=== PATIENT | male | born 1995 | race Caucasian/White ===

== ENCOUNTER 2016-09-14 19:48 | Emergency (ER) | payer SELFPAY ==
[~2016-09-14] VITALS: Ht 187.9 cm; Wt 83.0 kg
--- NOTE | ~2016-09-14 | EKG ---
[place], [place] ELECTROCARDIOGRAM REPORT NAME: CARLOS BOBO UNIT #: [id number] ROOM: DOCTOR: LASHAY PAYNE MD BIRTHDATE: [birth year] DOS: 09/14/2016 TIME: 2140. FINDINGS: Sinus rhythm at rate of 79. Probable right atrial enlargement. Possible right ventricular enlargement. Cannot rule out acute lateral ST elevation and lateral injury. Abnormal electrocardiogram. LASHAY PAYNE MD CM:EKGRPT:ELECTROCARDIOGRAM REPORT [id number] LASHAY PAYNE MD
--- NOTE | ~2016-09-14 | EKG ---
[place], [place] ELECTROCARDIOGRAM REPORT NAME: CARLOS BOBO UNIT #: [id number] ROOM: DOCTOR: LASHAY PAYNE MD BIRTHDATE: [birth year] DOS: 09/14/2016 TIME: 2001. FINDINGS: Sinus rhythm at rate of 99. Right atrial enlargement. Probable right ventricular hypertrophy. I cannot rule out acute lateral ischemia. Abnormal electrocardiogram. LASHAY PAYNE MD CM:EKGRPT:ELECTROCARDIOGRAM REPORT [id number] LASHAY PAYNE MD
[~2016-09-14 19:48] MED LIST: CIPROFLOXACIN750 MG PO; COLACE100 MG PO; K-DUR20 MEQ PO; METRONIDAZOLE500 M1 PO; VICODIN 5-3001 EACH PO
[2016-09-14 20:15] LABS: BASO # 0.1 10*3/uL (0.0-0.1); BASO % 0.5 % (0.0-1.0); EOS # 0.4 10*3/uL (0.0-0.4); EOS % 2.9 % (1.0-4.0); HEMATOCRIT 45.8 % (42.0-52.0); HEMOGLOBIN 15.3 g/dl (14.0-18.0); IG # 0.1 10*3/uL (0.0-0.1); LYMPH # 1.6 10*3/uL (1.3-4.4); LYMPH % 11.1 % (27.0-41.0); MEAN CELL VOLUME 92.3 fl (80.0-94.0); MEAN CORPUSCULAR HGB 30.8 pg (27.0-31.0); MEAN CORPUSCULAR HGB CONC 33.4 g/dl (33.0-37.0); MEAN PLATELET VOLUME 10.9 fl (9.6-12.3); MONO # 1.1 10*3/uL (0.1-1.0); MONO % 7.4 % (3.0-9.0); NEUT # 11.3 10*3/uL (2.3-7.9); NEUT % 77.3 % (47.0-73.0); PLATELET COUNT AUTOMATED 297 10*3/uL (130-400); RED BLOOD COUNT 4.96 10*6/uL (4.50-5.90); RED CELL DISTRI WIDTH 12.4 % (0-14.5); WHITE BLOOD COUNT 14.6 10*3/uL (4.8-10.8)
[2016-09-14 20:26] LABS: PROTHROMBIN TIME 10.7 SECONDS (9.0-12.4)
[2016-09-14 21:10] LABS: URINE AMPHETAMINES < 1000 (1000ng/ml); URINE BARBITURATES < 200 (200ng/ml); URINE COCAINE < 300 (300ng/ml)
[2016-09-14 21:21] LABS: ALBUMIN 3.6 gm/dl (3.1-4.5); ALKALINE PHOSPHATASE 57 U/L (45-117); BILIRUBIN, TOTAL 0.6 mg/dl (0.2-1.0); BUN 4 mg/dl (7-24); CARBON DIOXIDE 28 mmol/L (21-32); CHLORIDE 108 mmol/L (98-107); EST GLOM FILT AFRICAN AMERICAN > 60 ml/min; GLUCOSE 145 mg/dL (65-99); POTASSIUM 3.4 mmol/L (3.5-5.1); SGOT/AST 119 IU/L (3-35); SGPT/ALT 36 U/L (12-78); SODIUM 143 mmol/L (136-145); TOTAL PROTEIN 6.8 gm/dL (6.4-8.2)
== END 2016-09-14 21:21 | disposition short-term general hospital (02) ==
LOC: ED 19:48
PROVIDERS: Student in an Organized Health Care Education/Training Program
DX: R07.9 Chest pain, unspecified (principal); R79.89 Other specified abnormal findings of blood chemistry; F17.200 Nicotine dependence, unspecified, uncomplicated; Z90.49 Acquired absence of other specified parts of digestive tract

== ENCOUNTER 2018-11-25 22:25 | Emergency (ER) | payer OTHER ==
[~2018-11-25] VITALS: Wt 72.6 kg
[2018-11-25 22:54] LABS: BASO # 0.1 10*3/uL (0.0-0.1); BASO % 1.1 % (0.0-1.0); EOS # 0.6 10*3/uL (0.0-0.4); EOS % 9.3 % (1.0-4.0); HEMATOCRIT 43.5 % (42.0-52.0); HEMOGLOBIN 14.7 g/dl (14.0-18.0); LYMPH # 1.8 10*3/uL (1.3-4.4); LYMPH % 28.1 % (27.0-41.0); MEAN CELL VOLUME 92.9 fl (80.0-94.0); MEAN CORPUSCULAR HGB 31.4 pg (27.0-31.0); MEAN CORPUSCULAR HGB CONC 33.8 g/dl (33.0-37.0); MEAN PLATELET VOLUME 11.1 fl (9.6-12.3); MONO # 0.6 10*3/uL (0.1-1.0); MONO % 9.5 % (3.0-9.0); NEUT # 3.3 10*3/uL (2.3-7.9); NEUT % 51.7 % (47.0-73.0); PLATELET COUNT AUTOMATED 211 10*3/uL (130-400); RED BLOOD COUNT 4.68 10*6/uL (4.50-5.90); RED CELL DISTRI WIDTH 11.9 % (0-14.5); WHITE BLOOD COUNT 6.3 10*3/uL (4.8-10.8)
[2018-11-25 23:10] LABS: ALBUMIN 4.5 gm/dl (3.1-4.5); ALKALINE PHOSPHATASE 68 U/L (45-117); BUN 16 mg/dl (7-24); CHLORIDE 106 mmol/L (98-107); POTASSIUM 3.7 mmol/L (3.5-5.1); SGOT/AST 12 IU/L (3-35); SGPT/ALT 22 U/L (12-78); SODIUM 141 mmol/L (136-145); TOTAL PROTEIN 7.6 gm/dL (6.4-8.2)
== END 2018-11-26 02:04 | disposition home or self-care (01) ==
LOC: ED 22:25
PROVIDERS: Nurse Practitioner Family
DX: R51 Headache (principal); I10 Essential (primary) hypertension; F17.210 Nicotine dependence, cigarettes, uncomplicated

== ENCOUNTER 2019-06-22 06:06 | Emergency (ER) | payer SELFPAY ==
[~2019-06-22] VITALS: Ht 187.9 cm; Wt 77.1 kg
[2019-06-22 06:53] LABS: BASO # 0.1 10*3/uL (0.0-0.1); EOS # 0.4 10*3/uL (0.0-0.4); HEMOGLOBIN 13.7 g/dl (14.0-18.0); LYMPH # 2.4 10*3/uL (1.3-4.4); LYMPH % 39.4 % (27.0-41.0); MEAN CELL VOLUME 93.4 fl (80.0-94.0); MEAN CORPUSCULAR HGB 31.2 pg (27.0-31.0); MEAN CORPUSCULAR HGB CONC 33.4 g/dl (33.0-37.0); MONO # 0.8 10*3/uL (0.1-1.0); MONO % 12.9 % (3.0-9.0); NEUT # 2.4 10*3/uL (2.3-7.9); NEUT % 40.4 % (47.0-73.0); PLATELET COUNT AUTOMATED 239 10*3/uL (130-400); RED BLOOD COUNT 4.39 10*6/uL (4.50-5.90); RED CELL DISTRI WIDTH 12.2 % (0-14.5)
[2019-06-22] MEDS ORDERED: CLINDAMYCIN150 MG PO (07:12)
[2019-06-22] MEDS ORDERED: Motrin,Rufen800 MG PO (07:12)
[2019-06-22 07:14] LABS: BUN 15 mg/dl (7-24); CHLORIDE 106 mmol/L (98-107); POTASSIUM 3.8 mmol/L (3.5-5.1); SODIUM 139 mmol/L (136-145)
== END 2019-06-22 07:11 | disposition home or self-care (01) ==
LOC: ED 06:06
PROVIDERS: Emergency Medicine Emergency Medical Services
DX: K02.9 Dental caries, unspecified (principal); K04.01 Reversible pulpitis; I10 Essential (primary) hypertension; F17.210 Nicotine dependence, cigarettes, uncomplicated; Z90.49 Acquired absence of other specified parts of digestive tract

== ENCOUNTER → 2020-03-26 | Outpatient (CLI) | payer SELFPAY ==
[~2020-03-26] MED LIST changes: +CLINDAMYCIN150 MG PO; +Motrin,Rufen800 MG PO
== END | disposition home or self-care (01) ==
LOC: COVID19 13:36
PROVIDERS: ATTEND Internal Medicine
DX: Z20.828 Contact with and (suspected) exposure to other viral communicable diseases (principal)

== ENCOUNTER 2021-01-08 15:45 | Emergency (ER) | payer OTHER ==
[~2021-01-08] VITALS: Ht 187.9 cm; Wt 81.6 kg
== END 2021-01-08 19:24 | disposition home or self-care (01) ==
LOC: ED 15:45
DX: S92.351A Displaced fracture of fifth metatarsal bone, right foot, initial encounter for closed fracture (principal); F17.210 Nicotine dependence, cigarettes, uncomplicated; F12.10 Cannabis abuse, uncomplicated; Z90.49 Acquired absence of other specified parts of digestive tract; X50.1XXA Overexertion from prolonged static or awkward postures, initial encounter; Y93.61 Activity, american tackle football; Y92.89 Other specified places as the place of occurrence of the external cause; Y99.9 Unspecified external cause status

== ENCOUNTER 2022-03-31 09:39 | Emergency (ER) | payer BC ==
[~2022-03-31] VITALS: Ht 187.9 cm; Wt 72.6 kg
[2022-03-31] MEDS ORDERED: VIBRA-TAB100 MG PO (10:02)
== END 2022-03-31 10:07 | disposition home or self-care (01) ==
LOC: ED 09:39
DX: J40 Bronchitis, not specified as acute or chronic (principal); R04.2 Hemoptysis; Z90.49 Acquired absence of other specified parts of digestive tract; Z98.890 Other specified postprocedural states

== ENCOUNTER 2024-05-21 10:23 | Emergency (ER) | payer BC ==
[~2024-05-21] VITALS: Ht 187.9 cm; Wt 74.8 kg
[~2024-05-21 10:23] MED LIST changes: +VIBRA-TAB100 MG PO
[2024-05-21] MEDS ORDERED: SEROQUEL50 MG PO (11:46)
[2024-05-21] MEDS ORDERED: FLOMAX0.4 MG PO (11:47)
[2024-05-21 11:52] LABS: BASO # 0.1 10*3/uL (0.0-0.1); EOS # 0.1 10*3/uL (0.0-0.4); EOS % 2.4 % (1.0-4.0); HEMATOCRIT 47.6 % (42.0-52.0); MEAN CELL VOLUME 90.5 fl (80.0-94.0); MEAN CORPUSCULAR HGB CONC 33.2 g/dl (33.0-37.0); MEAN PLATELET VOLUME 10.8 fl (9.6-12.3); MONO # 0.4 10*3/uL (0.1-1.0); NEUT # 3.5 10*3/uL (2.3-7.9); NEUT % 70.3 % (47.0-73.0); PLATELET COUNT AUTOMATED 272 10*3/uL (130-400); RED BLOOD COUNT 5.26 10*6/uL (4.50-5.90)
[2024-05-21 11:55] LABS: BILIRUBIN Negative (Negative); BLOOD Negative (Negative); CLARITY Clear (Clear); COLOR Yellow (Yellow); GLUCOSE Negative (Negative); KETONE Negative (Negative); LEUKO ESTERASE Negative (Negative); NITRITE Negative (Negative); SPECIFIC GRAVITY 1.025 (1.001-1.030)
[2024-05-21 12:03] LABS: URINE AMPHETAMINES Negative (1000ng/ml); URINE BARBITURATES Negative (200ng/ml); URINE BENZODIAZEPINES Negative (200ng/ml); URINE CANNABINOIDS (THC) Positive (50ng/ml); URINE COCAINE Negative (300ng/ml); URINE METHADONE Negative (300ng/ml); URINE OPIATES Negative (300ng/ml); URINE PHENCYCLIDINE Negative (25ng/ml)
[2024-05-21 12:04] LABS: ACT PARTIAL THROMBO TIME 28.8 SECONDS (20.0-32.1)
[2024-05-21 12:05] LABS: BACTERIA 1+; EPITHELIAL CELLS 0-2; MUCOUS 2+; WBC 0-2 wbc/hpf (0-5)
[2024-05-21 12:24] LABS: ALKALINE PHOSPHATASE 78 U/L (46-116); BUN 15 mg/dl (9-23); CHLORIDE 104 mmol/L (98-107); LDH 170 U/L (120-246); LIPASE 30 U/L (12-53); POTASSIUM 3.9 mmol/L (3.4-5.1); SGPT/ALT 17 U/L (5-49); TOTAL PROTEIN 8.3 gm/dL (6.0-8.0)
[2024-05-22 05:06] LABS: HBsAG SCREEN Negative (Negative); HCV Ab Non Reactive (Non Reactive); HEP B CORE Ab, IgM Negative (Negative)
== END 2024-05-21 13:22 | disposition home or self-care (01) ==
LOC: ED 10:23
PROVIDERS: Emergency Medicine
DX: K80.20 Calculus of gallbladder without cholecystitis without obstruction (principal); R74.01 Elevation of levels of liver transaminase levels; K76.9 Liver disease, unspecified; Z90.49 Acquired absence of other specified parts of digestive tract; Z95.5 Presence of coronary angioplasty implant and graft; Z98.890 Other specified postprocedural states; Z72.0 Tobacco use; Z79.899 Other long term (current) drug therapy

== ENCOUNTER 2024-07-06 20:47 | Emergency (ER) | payer BC ==
[~2024-07-06] VITALS: Wt 75.7 kg
[~2024-07-06 20:47] MED LIST changes: +FLOMAX0.4 MG PO; +SEROQUEL50 MG PO
[2024-07-06] MEDS ORDERED: diphenhydrAMINE hydrochloride 25 MG CAP PO ONE (22:15)
[2024-07-07] MEDS ORDERED: DIPHENHYDRAMINE25 M2 PO (00:36)
[2024-07-07] MEDS ORDERED: VIBRAMYCIN100 MG PO (00:36)
[2024-07-07] MEDS ORDERED: Doxycycline Hyclate 100 MG CAP PO ONE (00:40)
== END 2024-07-07 00:48 | disposition home or self-care (01) ==
LOC: ED 20:47
DX: L50.9 Urticaria, unspecified (principal); L03.115 Cellulitis of right lower limb; F12.10 Cannabis abuse, uncomplicated; F17.210 Nicotine dependence, cigarettes, uncomplicated; Z90.49 Acquired absence of other specified parts of digestive tract; Z95.5 Presence of coronary angioplasty implant and graft